=== PATIENT | female | born 1975 | race Caucasian/White ===

== ENCOUNTER 2022-05-25 23:49 | Emergency (ER) | payer OTHER ==
[~2022-05-25] VITALS: Ht 162.6 cm; Wt 93.4 kg
[2022-05-25 23:55] VITALS: BP 139/89
[2022-05-26] MEDS ORDERED: BACITRACIN OINT 500 UNITS/GM PKT TP ONE (02:05)
[2022-05-26] MEDS ORDERED: BACI1PAC6 TP (02:06)
[2022-05-26] MEDS ORDERED: NAPR-54 PO (02:06)
[2022-05-26 02:20] VITALS: BP 121/80
== END 2022-05-26 02:20 | disposition home or self-care (01) ==
LOC: MED 23:49
DX: T23.272A Burn of second degree of left wrist, initial encounter (principal); F17.210 Nicotine dependence, cigarettes, uncomplicated; Z79.899 Other long term (current) drug therapy; Z98.890 Other specified postprocedural states; V89.2XXA Person injured in unspecified motor-vehicle accident, traffic, initial encounter; Y93.89 Activity, other specified; Y92.89 Other specified places as the place of occurrence of the external cause; Y99.8 Other external cause status
CPT/HCPCS: 16020; 99282